=== PATIENT | male | born 1935 | race Caucasian/White ===

== ENCOUNTER → 2017-02-10 | Outpatient (CLI) | payer MEDICARE ==
[~2017-02-10] MED LIST: AMLO5TAB2 PO; CARV25TA PO; CIPR500T21 PO; CIPR500T4 PO; FAMO20TA5 PO; FOLI1TAB24 PO; FURO-124 PO; FURO-125 PO; HYDR100T27 PO; LEVO75TA6 PO; LOSA100T28 PO; MAGN400T6 PO; MECL-106 PO; METH2.5T PO; POTA20TA15 PO; POTA40LI PO; [UNRECOGNIZED DRUG - OTHER] PO
[2017-02-10 13:20] LABS: BILIRUBIN,URINE NEGATIVE (NEGATIVE); KETONES,URINE NEGATIVE (NEGATIVE); LEUKOCYTE ESTERASE ,URINE 3+ (NEGATIVE); NITRITE,URINE NEGATIVE (NEGATIVE); PH,URINE 7 (5-9); PROTEIN,URINE 4+ (NEGATIVE); UROBILINOGEN,URINE NORMAL (NORMAL)
[2017-02-10 13:32] LABS: SQUAMOUS EPITHELIAL CELL,UR RARE /HPF; WBC,URINE TNTC /HPF
== END ==
LOC: LABNPT 09:00
PROVIDERS: ATTEND Internal Medicine
DX: R31.0 Gross hematuria (principal)
CPT/HCPCS: 81000; 87077; 87088; 87186

== ENCOUNTER 2017-03-26 18:47 | Emergency (ER) | payer MEDICARE ==
[~2017-03-26] VITALS: Ht 177.8 cm; Wt 113.7 kg
--- NOTE | 2017-03-26 18:58 | ED General ---
General Chief Complaint: Glucose Problems Stated Complaint: HYPOGLYCEMIA Source of Information: Patient, EMS Exam Limitations: No Limitations History of Present Illness Time Seen by Provider: 18:55 Initial Comments To ER per EMS from [facility] with reports of hypoglycemia and altered mental status. Patient is a known diabetic and his blood sugar was found to be 43 by EMS. Patient remained alert so he was given a tube of oral glucose. Upon arrival to ER blood sugar is 170s. EMS report that their EKG showed atrial fibrillation which they believed to be new as it is not mentioned in the patient's diagnosis list. However, patient was seen here in September of last year for atrial fibrillation. He has a history of CHF. When asked how he feels the patient states "not worth a damn". EMS reports he is much more alert now than he was upon their arrival. Timing/Duration: 1/2 Hour Severity: Moderate Allergies and Home Medications Allergies Coded Allergies: Penicillins (Verified Allergy, Unknown, 07/29/15) Home Medications Amlodipine Besylate 5 Mg Tablet, 10 MG PO DAILY, #30 Ref 3 Prescribed by: KIMMY VAUGHN on 08/03/15 1410 Carvedilol 25 Mg Tablet, 25 MG PO BID, (Reported) Famotidine 20 Mg Tablet, 10 MG PO BID, #60 Prescribed by: KIMMY VAUGHN on 08/03/15 1414 Folic Acid 1 Mg Tablet, 1 MG PO MON, WED, FRI, (Reported) Furosemide 40 Mg Tablet, 40 MG PO BID, #60 Ref 3 Prescribed by: KIMMY VAUGHN on 08/03/15 1414 Hydralazine HCl 100 Mg Tablet, 100 MG PO TID, (Reported) Levothyroxine Sodium 75 Mcg Tablet, 75 MCG PO DAILY, (Reported) Losartan Potassium 100 Mg Tablet, 100 MG PO DAILY, (Reported) Magnesium Oxide 400 Mg Tablet, 400 MG PO BIDPC, #60 Ref 3 Prescribed by: KIMMY VAUGHN on 08/03/15 1414 Meclizine HCl 25 Mg Tablet, 25 MG PO TID PRN for DIZZINESS, (Reported) Methotrexate Sodium 2.5 Mg Tablet, 15 MG PO EVERY 7 DAYS, (Reported) Potassium Chloride 40 Meq/15 Ml Liquid, 40 MEQ PO BID, #60 Ref 3 Prescribed by: KIMMY VAUGHN on 08/03/15 1414 Constitutional: see HPI EENTM: see HPI Respiratory: no symptoms reported Cardiovascular: no symptoms reported Genitourinary: no symptoms reported Musculoskeletal: no symptoms reported Skin: no symptoms reported Psychiatric/Neurological: No Symptoms Reported Hematologic/Lymphatic: No Symptoms Reported Immunological/Allergic: no symptoms reported Past Gyuvyai-Odzotm-Zesjha Hx Patient Social History Recent Hopitalizations: No Immunizations Up To Date Tetanus Booster (TDap): Unknown Surgeries HX Surgeries: Yes (RIGHT TOTAL KNEE REPLACEMENT) Surgeries: Joint Replacement, Orthopedic Respiratory Hx Respiratory Disorders: No Cardiovascular Hx Cardiac Disorders: Yes (CHF) Cardiac Disorders: Chronic Edema/Swelling, Coronary Artery Disease, High Cholesterol, Hypertension, Peripheral Vascular Neurological Hx Neurological Disorders: Yes Neurological Disorders: Vertigo Reproductive System Hx Reproductive Disorders: No Sexually Transmitted Disease: No HIV/AIDS: No Genitourinary Hx Genitourinary Disorders: Yes Genitourinary Disorders: Bladder Infection, Renal Failure Gastrointestinal Hx Gastrointestinal Disorders: No Musculoskeletal Hx Musculoskeletal Disorders: Yes (GENERAL DEBILITY, MULTIPLE FALLS) Musculoskeletal Disorders: Arthritis Endocrine Hx Endocrine Disorders: Yes Endocrine Disorders: Hypothyroidsim, Diabetes, Non-Insulin dep HEENT HX ENT Disorders: Yes HEENT Disorders: Cataract Cancer Hx Cancer: No Psychosocial Hx Psychiatric Problems: No Integumentary HX Skin/Integumentary Disorder: No Blood Transfusions Hx Blood Disorders: No Physical Exam Vital Signs Vital Sign - Last 12Hours 03/26/17 19:05 Temp 97.8 Pulse 98 Resp 20 B/P (MAP) 149/88 Pulse Ox 97 O2 Delivery Room Air Capillary Refill : General Appearance: No Apparent Distress, Chronically ill, Obese Eyes: Bilateral Eye EOMI, Bilateral Eye Normal Inspection, Bilateral Eye PERRL HEENT: PERRL/EOMI, TMs Normal Neck: Full Range of Motion, Normal Inspection Respiratory: No Accessory Muscle Use, No Respiratory Distress Cardiovascular: Irregularly Irregular Gastrointestinal: Non Tender, Soft Extremity: Normal Capillary Refill, Normal Inspection, Pedal Edema (3+ BLE) Neurologic/Psychiatric: Alert, Oriented x3, No Motor/Sensory Deficits Skin: Normal Color, Warm/Dry Progress/Results/Core Measures Results/Orders Lab Results Laboratory Tests Test 03/26/17 18:54 03/26/17 19:19 03/26/17 20:01 Range/Units Glucometer 149 H 180 H 70-110 MG/DL White Blood Count 7.7 4.3-11.0 10^3/uL Red Blood Count 4.08 L 4.35-5.85 10^6/uL Hemoglobin 12.8 L 13.3-17.7 G/DL Hematocrit 38 L 40-54 % Mean Corpuscular Volume 94 80-99 FL Mean Corpuscular Hemoglobin 31 25-34 PG Mean Corpuscular Hemoglobin Concent 34 32-36 G/DL Red Cell Distribution Width 14.6 H 10.0-14.5 % Platelet Count 192 130-400 10^3/uL Mean Platelet Volume 10.4 7.4-10.4 FL Neutrophils (%) (Auto) 73 42-75 % Lymphocytes (%) (Auto) 16 12-44 % Monocytes (%) (Auto) 9 0-12 % Eosinophils (%) (Auto) 3 0-10 % Basophils (%) (Auto) 0 0-10 % Neutrophils # (Auto) 5.6 1.8-7.8 X 10^3 Lymphocytes # (Auto) 1.2 1.0-4.0 X 10^3 Monocytes # (Auto) 0.7 0.0-1.0 X 10^3 Eosinophils # (Auto) 0.2 0.0-0.3 10^3/uL Basophils # (Auto) 0.0 0.0-0.1 10^3/uL Sodium Level 138 135-145 MMOL/L Potassium Level 3.7 3.6-5.0 MMOL/L Chloride Level 100 98-107 MMOL/L Carbon Dioxide Level 28 21-32 MMOL/L Anion Gap 10 5-14 MMOL/L Blood Urea Nitrogen 21 H 7-18 MG/DL Creatinine 1.48 H 0.60-1.30 MG/DL Estimat Glomerular Filtration Rate 45 BUN/Creatinine Ratio 14 Glucose Level 163 H 70-105 MG/DL Calcium Level 8.9 8.5-10.1 MG/DL Total Bilirubin 0.6 0.1-1.0 MG/DL Aspartate Amino Transf (AST/SGOT) 9 5-34 U/L Alanine Aminotransferase (ALT/SGPT) 6 0-55 U/L Alkaline Phosphatase 65 40-136 U/L B-Type Natriuretic Peptide 226.6 H <100.0 PG/ML Total Protein 7.0 6.4-8.2 G/DL Albumin 3.6 3.2-4.5 G/DL My Orders Orders - MAXX CHOI APRN Cbc With Automated Diff (03/26/17 18:54) Comprehensive Metabolic Panel (03/26/17 18:54) BNP (03/26/17 18:54) Chest 1 View, Ap/Pa Only (03/26/17 18:54) Ua Culture If Indicated (03/26/17 18:54) Saline Lock/Iv-Start (03/26/17 18:54) Furosemide Injection (Lasix Injection) (03/26/17 19:00) Ekg Tracing (03/26/17 19:36) Accucheck Stat ONCE (03/26/17 19:54) Vital Signs/I&O Vital Sign - Last 12Hours 03/26/17 19:05 Temp 97.8 Pulse 98 Resp 20 B/P (MAP) 149/88 Pulse Ox 97 O2 Delivery Room Air Diagnostic Imaging Diagonstic Imaging: Xray Plain Films/CT/US/NM/MRI: chest Comments NAME: ELEN HERNANDEZ [facility] REC#: [id number] PT STATUS: REG ER : 1935 PHYSICIAN: MAXX CHOI APRN ADMIT DATE: 03/26/17/ER Draft Date of Exam:03/26/17 CHEST 1 VIEW, AP/PA ONLY INDICATION: Hypoglycemia COMPARISON: 08/04/2015 FINDINGS: Single frontal view of the chest demonstrates mild cardiomegaly. Pulmonary vasculature is within normal limits. There is aortic atherosclerosis.. Evaluation of the lung whalen suggests nodular opacity in the right upper lung field. There is otherwise no focal consolidation, large effusion, nor pneumothorax. The visualized osseous structures show no acute abnormalities. IMPRESSION: 1. Cardiomegaly, but no evidence of overt failure. 2. Findings suspicious for nodular opacities in right upper lobe. Further evaluation with dedicated CT chest could be performed on a nonemergent basis. Dictated on workstation # [id number] Dict: 03/26/171914 Trans: 03/26/171918 CARROLL [id number] Interpreted by: JOSÉ ANTONIO HANEY Electronically signed by: Departure Communication Progress Notes EKG does show atrial fibrillation with a rate of 100. Blood pressure is adequate. Patient has a history of diabetes. Age greater than 65. Age greater than 65. History of CHF and hypertension. This would give him a Cha2 DS 2-vascular score of 3 recommend anticoagulation. Patient would be at low risk of falls because he is nonambulatory at the half-way. His family would like anticoagulant therapy if it is recommended and his SUSHILA 2 DS 2 vascular score would recommend this. I will start Eliquis 2.5 mg by mouth twice a day and have him follow-up with primary care and his [employer] g[employer]here[facility] Dr. Terrell. No history of GI bleed Impression Impression: Primary Impression: Hypoglycemia associated with diabetes Additional Impression: Atrial fibrillation Disposition: 01 HOME, SELF-CARE Condition: Stable Departure-Patient Inst. Decision time for Depature: 19:35 Referrals: ELEN JOHNSON MD (PCP/Family) Primary Care Physician Patient Instructions: Diabetes Type 1, Adult (DC) Add. Discharge Instructions: 1. Check blood sugars frequently certainly at least twice more today. Return to ER for any worsening 3. All discharge instructions reviewed with patient and/or family. Voiced understanding. Scripts Apixaban (Eliquis) 2.5 Mg Tablet 2.5 MG PO BID, #20 TAB Prov: MAXX CHOI DELIVERY TECH 03/26/17 Copy Copies To 1: EVERETT TERRELL MD; ELEN JOHNSON MD, PETER J APRN March 26, 2017 18:58
[2017-03-26] MEDS ORDERED: FUROSEMIDE 40 MG/4 ML INJ (LASIX) IVP ONE (19:00)
--- NOTE | 2017-03-26 19:20 | Diagnostic Imaging Report ---
INDICATION: Hypoglycemia COMPARISON: 08/04/2015 FINDINGS: Single frontal view of the chest demonstrates mild cardiomegaly. Pulmonary vasculature is within normal limits. There is aortic atherosclerosis.. Evaluation of the lung whalen suggests nodular opacity in the right upper lung field. There is otherwise no focal consolidation, large effusion, nor pneumothorax. The visualized osseous structures show no acute abnormalities. IMPRESSION: 1. Cardiomegaly, but no evidence of overt failure. 2. Findings suspicious for nodular opacities in right upper lobe. Further evaluation with dedicated CT chest could be performed on a nonemergent basis. Dictated by: Dictated on workstation # [id number]
[2017-03-26 19:27] LABS: BASOPHILS % (AUTO) 0 % (0-10); EOSINOPHILS # (AUTO) 0.2 10^3/uL (0.0-0.3); EOSINOPHILS % (AUTO) 3 % (0-10); LYMPHOCYTES # (AUTO) 1.2 X 10^3 (1.0-4.0); LYMPHOCYTES % (AUTO) 16 % (12-44); MEAN CORPUSCULAR HEMOGLOBIN 31 PG (25-34); MEAN CORPUSCULAR HGB CONC 34 G/DL (32-36); MEAN CORPUSCULAR VOLUME 94 FL (80-99); MEAN PLATELET VOLUME 10.4 FL (7.4-10.4); MONOCYTES # (AUTO) 0.7 X 10^3 (0.0-1.0); MONOCYTES % (AUTO) 9 % (0-12); NEUTROPHILS # (AUTO) 5.6 X 10^3 (1.8-7.8); NEUTROPHILS % (AUTO) 73 % (42-75); PLATELET COUNT 192 10^3/uL (130-400); RED BLOOD COUNT 4.08 10^6/uL (4.35-5.85); RED CELL DISTRIBUTION WIDTH 14.6 % (10.0-14.5); WHITE BLOOD COUNT 7.7 10^3/uL (4.3-11.0)
[2017-03-26 19:43] LABS: ALBUMIN 3.6 G/DL (3.2-4.5); BILIRUBIN,TOTAL 0.6 MG/DL (0.1-1.0); CALCIUM 8.9 MG/DL (8.5-10.1); CREATININE SERUM 1.48 MG/DL (0.60-1.30); POTASSIUM 3.7 MMOL/L (3.6-5.0)
[2017-03-26] MEDS ORDERED: APIX2.5T PO (20:25)
[2017-03-26 21:30] VITALS: BP 165/92
== END 2017-03-26 21:30 | disposition home or self-care (01) ==
LOC: EDUNIT# 18:47 → ER 18:48
DX: E11.649 Type 2 diabetes mellitus with hypoglycemia without coma (principal); I48.2 Chronic atrial fibrillation; I11.0 Hypertensive heart disease with heart failure; I51.7 Cardiomegaly; I25.10 Atherosclerotic heart disease of native coronary artery without angina pectoris; Z79.899 Other long term (current) drug therapy; Z96.651 Presence of right artificial knee joint
CPT/HCPCS: 36415; 71010; 80053; 82962; 83880; 85025; 93005

== ENCOUNTER → 2017-07-09 | Outpatient (CLI) | payer MEDICARE ==
[~2017-07-09] MED LIST changes: +APIX2.5T PO; +BARIUM SUSPENSION 105% (LIQUID POLIBAR PLUS) 240 ML/DOSE PO ONE; +BARIUM SUSPENSION 60% (LIQUID EZ PAQUE) 240 ML DOSE PO ONE
--- NOTE | 2017-07-09 14:45 | Diagnostic Imaging Report ---
INDICATION: Aspiration pneumonia. The procedure was performed in conjunction with a member of the department of speech pathology. Patient swallowed thin and thick barium and semisolid and solid foods mixed with barium paste. This study was recorded on videotape. FINDINGS: There is aspiration of honey consistency barium. This improved with chin tuck. Thick consistency barium was swallowed without aspiration. Cricopharyngeal function and laryngeal elevation are grossly normal. IMPRESSION: Aspiration with honey consistency barium. Please correlate with the formal speech pathology report. Dictated by: Dictated on workstation # [id number]
== END ==
LOC: RAD 11:01
PROVIDERS: ATTEND Nurse Practitioner
DX: J69.0 Pneumonitis due to inhalation of food and vomit (principal)
CPT/HCPCS: 74230